=== PATIENT | male | born 1970 | race African-American/Black ===

== ENCOUNTER 2020-11-03 13:44 | Emergency (ER) | payer OTHER ==
[2020-11-03 14:19] LABS: BASOPHIL 0.6 % (0-2); EOSINOPHIL 0.5 % (0-5); HCT 40.6 % (42.0-52.0); HGB 13.3 g/dl (13.2-18.0); LYMPHOCYTE 22.2 % (15-48); MCH 31.7 pg (25.0-31.0); MCHC 32.8 g/dL (32.0-36.0); MCV 96.9 fL (78.0-100.0); MONOCYTE 4.1 % (0-12); MPV 10.5 fL (6.0-9.5); NEUTROPHIL 72.3 % (41-80); NRBC 0; PLT 206 K/uL (150-400); RBC 4.19 M/uL (4.70-6.00); RDW 12.4 % (11.5-14.0); WBC 6.4 K/uL (4.0-10.5)
[2020-11-03 14:27] LABS: INR 1.17 (0.9-1.2); PROTHROMBIN TIME 14.1 SECONDS (11.4-13.6); PTT 27.9 SECONDS (22.2-34.7)
[2020-11-03 14:43] LABS: ALBUMIN 3.5 g/dL (3.4-5.0); BILIRUBIN - TOTAL 0.4 mg/dL (0.2-1.0); BUN/CREAT RATIO (CALC) 13.9 RATIO; CREATININE 1.08 mg/dL (0.67-1.17); POTASSIUM 3.9 mmol/L (3.5-5.1); TOTAL PROTEIN 7.5 g/dL (6.4-8.2)
[2020-11-03 14:54] LABS: CKMB 0.6 ng/mL (0.0-3.6)
== END 2020-11-03 16:42 | disposition other institution (70) ==
LOC: FER 13:44
PROVIDERS: Emergency Medicine
DX: I20.0 Unstable angina (principal); Z20.822 Contact with and (suspected) exposure to COVID-19
CPT/HCPCS: 36415; 71045; 80053; 82553; 84484; 85025; 85610; 85730; 93005; J1644; U0002